=== PATIENT | male | born 1980 | race African-American/Black ===

== ENCOUNTER 2023-02-18 21:11 | Emergency (ER) | payer BC, SELFPAY ==
--- NOTE | ~2023-02-18 | CT_ITS ---
EXAMINATION: CT abdomen pelvis w con DATE: 02/19/2023 03:17 INDICATION: Nausea, vomiting, and diarrhea. Hemoptysis. TECHNIQUE: Computed tomography (CT) of the abdomen and pelvis was performed with 100 mL Omnipaque 350 intravenous contrast. Automated exposure control and iterative reconstruction technique were employe d. The dose-length product was 455.78 mGy-cm. COMPARISON: None. FINDINGS: The visualized portions of the lung bases are clear without pneumonia or pleural effusion. The heart size is normal. No pericardial effusion. There is a small sliding hiatal hernia. The nasoga stric tube tip is in the stomach with proximal side port in the distal esophagus. There is a 4 mm cys t in the liver. The gallbladder, spleen, pancreas, adrenal glands, and left kidney are normal. There is a 6 mm cyst in right kidney. There are no dilated loops of bowel. The appendix is normal. There is calcified atherosclerosis of the aorta and a few of the other arteries. There are no pathologically enlarged lymph nodes. There is no free intraperitoneal fluid. The bladder is distended. There is mild thoracolumbar spondylosis. IMPRESSION: 1. Small sliding hiatal hernia. 2. Nasogastric tube tip in the stomach with proximal side port in the distal esophagus. Advancement 1 0 cm is recommended. Reviewed, dictated and finalized at location D. IMPRESSION: 1. Small sliding hiatal hernia. 2. Nasogastric tube tip in the stomach with proximal side port in the distal es ophagus. Advancement 10 cm is recommended.
[2023-02-18 21:29] VITALS: BP 125/81; PULSE 88; RESP 15; TEMP 36.4; O2SAT 100
[2023-02-18 21:55] LABS: Basophils Absolute Auto 0.1 K/mm3 (0.0-0.1); Basophils Percent Auto 0.7 % (0.2-1.2); Eosinophils Absolute Auto 0.1 K/mm3 (0-0.3); Eosinophils Percent Auto 0.9 % (0-4.4); Hematocrit 39.9 % (42.0-52.0); Hemoglobin 13.6 g/dL (14.0-18.0); Immature Granulocyte Absolute 0.04 K/mm3 (0.00-0.031); Immature Granulocyte Percent A 0.4 % (0-0.5); Lymphocytes Absolute Auto 1.68 K/mm3 (0.9-3.2); Lymphocytes Percent Auto 17.7 % (18.3-44.2); Mean Corpuscular HGB Conc 34.1 g/dl (32-36); Mean Corpuscular Hemoglobin 33.6 pg (26-34); Mean Corpuscular Volume 98.5 fl (80-100); Mean Platelet Volume 11.6 fl (7.4-10.4); Monocytes Absolute Auto 0.7 K/mm3 (0.1-0.6); Monocytes Percent Auto 7.7 % (2.6-8.5); Neutrophils Absolute Auto 6.9 K/mm3 (1.3-6.7); Neutrophils Percent Auto 72.6 % (45.5-73.1); Platelet Count Result 180 k/mm3 (150-375); Red Blood Count 4.05 M/mm3 (4.6-6.20); Red Cell Distribution Width 11.9 % (11.5-14.5); White Blood Count 9.5 K/mm3 (4.5-10.0)
[2023-02-18 22:04] LABS: Alanine Aminotransferase 19 U/L (6-50); Albumin Level 4.3 g/dL (3.5-5.1); Alkaline Phosphatase 45 U/L (38-126); Anion Gap 8 mmol/L (8-16); Aspartate Amino Transferase 22 U/L (17-59); Blood Urea Nitrogen 34 mg/dL (9-20); Calcium 8.5 mg/dL (8.4-10.2); Carbon Dioxide 27 mmol/L (22-30); Chloride 104 mmol/L (98-107); Estimated CRCL calculation 92 ml/min; Estimated Glomerular Filt Rate > 60; Glucose 131 mg/dL (65-110); Lipase 130 U/L (23-300); Potassium 4.1 mmol/L (3.4-5.0); Sodium 139 mmol/L (137-145)
[2023-02-19] VITALS (8 sets, daily range): BP systolic 119–143; BP diastolic 80–100; PULSE 74–93; RESP 12–17; TEMP 36.6; O2SAT 100
[2023-02-19 00:22] LABS: Appearance Urine Clear (Clear); Bilirubin Urine Negative (Negative); Blood Urine Negative (Negative); Color Urine Yellow (Yellow); Glucose Urine UA Negative (Negative); Ketones Urine Trace mg/dL (Negative); Leukocyte Esterase Ur Negative LEU/UL (Negative); Nitrate Urine Negative (Negative); Protein Urine Negative (Negative); Specific Grav Ur 1.027 (1.001-1.035)
[2023-02-19 00:51] LABS: Add Urine Microscopic? YES
[2023-02-19 00:52] LABS: RBC Urine 0-2 /hpf (0-2); WBC Urine 0-3 /hpf
[2023-02-19] MEDS: ONDANSETRON INJ 4 MG/2 ML VIAL IV PUSH (01:52)
[2023-02-19] MEDS: PANTOPRAZOLE SODIUM IV 40 MG VIAL IV PUSH (01:52)
[2023-02-19 02:46] LABS: Hematocrit 38.3 % (42.0-52.0); Hemoglobin 13.4 g/dL (14.0-18.0)
--- NOTE | 2023-02-19 02:50 | ED.GENADULT ---
HPI - General Adult General Chief complaint: Nausea/Vomiting/Diarrhea Stated complaint: diarrhea, syncope after drinking yesterday Time Seen by Provider: 02/19/23 01:09 History of Present Illness HPI narrative: Patient is a 42-year-old gentleman who presents the emergency department with chief complaint of nausea vomiting and diarrhea patient reports that started this morning and reports that he has had some vomit that is been reddish tinge. The patient did report that he drank some [place] last night and also reports that his stool has been very black. The patient reports that he has had episodes where he is gotten very lightheaded and felt as though he was going to pass out the patient also feels extremely weak. The patient reports no prior history of GI bleeds reports that he is not on any anticoagulants. Related Data Allergies Allergy/AdvReac Type Severity Reaction Status Date / Time No Known Allergies Allergy Verified 02/18/23 21:12 Review of Systems Review of Systems: A 10 system review of systems was completed on the patient and is negative except for what is stated in the HPI. Nursing and ancillary documentation was reviewed. Exam Narrative: GENERAL: Well-appearing, well-nourished, and in no acute distress. HEAD: Normocephalic, atraumatic. EYES: PERRLA and EOMI. ENT: Nares clear, no rhinorrhea or epistaxis. Mucous membranes moist. NECK: Supple. CHEST: Clear to auscultation. No respiratory distress. HEART: Regular rate and rhythm. No murmur heard. Normal peripheral pulses. ABDOMEN: Soft, nontender, nondistended, normal active bowel sounds. : Guaiac positive stool present EXTREMITIES: Normal range of motion. No edema. SKIN: Warm, dry, no rash. NEURO: No focal deficits. Alert and oriented x3. PSYCH: Normal mood and affect. Course Vital Signs Vital signs: Vital Signs Temperature 36.4 C 02/18/23 21:29 Pulse Rate 88 02/18/23 21:29 Respiratory Rate 15 02/18/23 21:29 Blood Pressure 125/81 02/18/23 21:29 Pulse Oximetry 100 02/18/23 21:29 Oxygen Delivery Room Air 02/18/23 21:29 Temperature 36.6 C 02/19/23 01:08 Pulse Rate 77 02/19/23 04:12 Respiratory Rate 13 02/19/23 04:12 Blood Pressure 141/100 H 02/19/23 04:12 Pulse Oximetry 100 02/19/23 04:12 Oxygen Delivery Room Air 02/18/23 21:29 Medical Decision Making [facility] Narrative Medical decision making narrative: Differential diagnosis includes upper GI bleed, colitis, diverticulitis, lower GI bleed, gastritis Laboratory studies were obtained which showed a initial hemoglobin of 13.6 a repeat 1 was 13.4 showing no significant change. Electrolytes showed no significant abnormality lipase was normal urinalysis showed no evidence of ketones in the urine CT scan of the abdomen pelvis showed evidence of colitis also did show some early atherosclerotic disease. NG tube was placed by the nursing staff had initially some slight blood streaks but subsequently has cleared Patient was found to have colitis and the patient was started on p.o. antibiotics patient will also be recommended to follow-up with primary care due to the atherosclerotic disease Vital Signs Vital Signs: Vital Signs Temperature 36.4 C 02/18/23 21:29 Pulse Rate 88 02/18/23 21:29 Respiratory Rate 15 02/18/23 21:29 Blood Pressure 125/81 02/18/23 21:29 Pulse Oximetry 100 02/18/23 21:29 Oxygen Delivery Room Air 02/18/23 21:29 Temperature 36.6 C 02/19/23 01:08 Pulse Rate 77 02/19/23 04:12 Respiratory Rate 13 02/19/23 04:12 Blood Pressure 141/100 H 02/19/23 04:12 Pulse Oximetry 100 02/19/23 04:12 Oxygen Delivery Room Air 02/18/23 21:29 Lab Data 02/19/23 02:41 02/18/23 21:46 Labs: Lab Results 02/18/23 02/18/23 02/18/23 Range/Units 21:46 21:46 23:57 WBC 9.5 (4.5-10.0) K/mm3 RBC 4.05 L (4.6-6.20) M/mm3 Hgb 13.6 L (14.0-18.0) g/dL Hct 39.9 L (42.0-52.0)
--- NOTE | 2023-02-19 03:00 | PC.NURSE ---
Pt to imaging at this time.
--- NOTE | 2023-02-19 03:29 | PC.NURSE ---
Per EPDAVID Escalera okay to use.
[2023-02-19] MEDS: CIPROFLOXACIN 500 MG TAB PO (05:01)
[2023-02-19] MEDS: metroNIDAZOLE 250 MG TABLET 500 MG PO (05:01)
== END 2023-02-19 05:09 | disposition home or self-care (01) ==
PROVIDERS: Emergency Provider Emergency Medicine
DX: K52.9 Noninfective gastroenteritis and colitis, unspecified (principal)
CPT/HCPCS: 36415; 74177; 80053; 81001; 83690; 85014; 85018; 85025; 86850; 86900; 86901; 96374; 96375; 99284; A9270; C9113; J2405; Q9967